=== PATIENT | female | born 1995 | race Caucasian/White ===

== ENCOUNTER 2020-12-28 17:41 | Emergency (ER) | payer BC ==
--- NOTE | 2020-12-28 18:30 | EDM.PDOC ---
ED HPI GENERAL MEDICAL PROBLEM - General Chief Complaint: Abdominal Pain Stated Complaint: PAIN ON RIGHT SIDE Time Seen by Provider: 12/28/20 18:04 Source of Information: Reports: Patient, RN Notes Reviewed History Limitations: Reports: No Limitations - History of Present Illness INITIAL COMMENTS - FREE TEXT/NARRATIVE: Patient is a 25-year-old female who presents to the ER for her right-sided abdominal pain. Patient notes that she has had pain that wraps around into her right flank, but has located itself into her right upper quadrant recently for the last 2 weeks or so. She notes this is kind of colicky and intermittent nothing seems to really make it better and nothing really makes it worse. She is not having any fevers or chills, cough/breath, nausea/vomiting/diarrhea. She has no history of kidney stones or urinary tract infections. She further denying any sort of dysuria, frequency or urgency. States that the pain is sharp and stabbing in nature, and she has not experienced this pain before. She has been using Tylenol and ibuprofen but has not used any this today it does not seem to make it better. Also notes that certain foods do not seem to make a difference. Does state that she has a history of gallbladder dysfunction in her family and she is becoming concerned that it could be her gallbladder. She has had an appendectomy. Primary care provider is Keli Rios. Patient denies any chance of , and she states that she is on the Depo shot and has not gotten her period in some time. - Related Data Allergies Allergy/AdvReac Type Severity Reaction Status Date / Time Sulfa (Sulfonamide Allergy Cannot Verified 12/28/20 18:04 Antibiotics) Remember Home Meds: Home Meds Albuterol [Ventolin HFA] 2 puff INH Q6HR PRN 06/11/18 [History] Multivitamin [Multi-Vitamin Daily] 1 tab PO DAILY 06/11/18 [History] Sertraline [Zoloft] 100 mg PO DAILY 06/11/18 [History] Topiramate 50 mg PO BID 06/11/18 [History] busPIRone [Buspar] 15 mg PO DAILY 06/11/18 [History] Hyoscyamine [Hyomax-SL] 0.125 mg SL Q4H PRN #20 tab.sl 12/28/20 [Rx] Past Medical History HEENT History: Reports: Impaired Vision Respiratory History: Reports: Asthma Gastrointestinal History: Reports: GERD [employer]ELOPER History: Reports: Other (See Below) Other [employer] DEVELOPER History: ovarian cyst Other Neuro History: pseudotumor cerebri Psychiatric History: Reports: Anxiety, Depression Endocrine/Metabolic History: Reports: Obesity/BMI 30+ Dermatologic History: Reports: Eczema - Infectious Disease History Infectious Disease History: Reports: Chicken Pox, Influenza - Past Surgical History GI Surgical History: Reports: Appendectomy Social & Family History - Tobacco Use Tobacco Use Status *Q: Never Tobacco User Second Hand Smoke Exposure: No - Caffeine Use Caffeine Use: Reports: Coffee - Recreational Drug Use Recreational Drug Use: No ED ROS GENERAL - Review of Systems Review Of Systems: Comprehensive ROS is negative, except as noted in HPI. ED EXAM, GI/ABD - Physical Exam Exam: See Below Exam Limited By: No Limitations General Appearance: Alert, WD/WN, No Apparent Distress Respiratory/Chest: No Respiratory Distress, Lungs Clear, Normal Breath Sounds, No Accessory Muscle Use, Chest Non-Tender Cardiovascular: Normal Peripheral Pulses, Regular Rate, Rhythm, No Edema GI/Abdominal Exam: Normal Bowel Sounds, Soft, No Distention, No Mass, Tender (through RUQ and epigastrium) Extremities: Normal Inspection, Normal Capillary Refill Neurological: Alert, Oriented, Normal Cognition, No Motor/Sensory Deficits Psychiatric: Normal Affect, Normal Mood Skin Exam: Warm, Dry, Intact, Normal Color, No Rash Course - Vital Signs Last Recorded V/S: Last Vital Signs Temp 97.1 F 12/28/20 17:57 Pulse 76 12/28/20 17:57 Resp 16 12/28/20 17:57 BP Pulse Ox 99 12/28/20 17:57 - Orders/Labs/Meds Orders: Active Orders 24 hr Category Date Time Status Abdomen Ltd [US] Stat Exams 12/28/20 18:26 Taken CULTURE URINE [MREF] Urgent Lab 12/28/20 18:10 Received Labs: Laboratory Tests 12/28/20 12/28/20 12/28/20 Range/Units 18:10 18:37 18:37 WBC 6.54 (3.98-10.04) K/mm3 RBC 4.48 (3.98-5.22) M/mm3 Hgb 13.1 (11.2-15.7) gm/dl Hct 39.0 (34.1-44.9) % MCV 87.1 (79.4-94.8) fl MCH 29.2 (25.6-32.2) pg MCHC 33.6 (32.2-35.5) g/dl RDW Std Deviation 42.8 (36.4-46.3) fL Plt Count 232 (182-369) K/mm3 MPV 10.8 (9.4-12.3) fl Neut % (Auto) 62.2 (34.0-71.1) % Lymph % (Auto) 28.0 (19.3-51.7) % Dukes % (Auto) 7.5 (4.7-12.5) % Eos % (Auto) 1.5 (0.7-5.8) Baso % (Auto) 0.8 (0.1-1.2) % Neut # (Auto) 4.07 (1.56-6.13) K/mm3 Lymph # (Auto) 1.83 (1.18-3.74) K/mm3 Dukes # (Auto) 0.49 H (0.24-0.36) K/mm3 Eos # (Auto) 0.10 (0.04-0.36) K/mm3 Baso # (Auto) 0.05 (0.01-0.08) K/mm3 Sodium 140 (136-145) mEq/L Potassium 3.8 (3.5-5.1) mEq/L Chloride 107 (98-107) mEq/L Carbon Dioxide 24 (21-32) mEq/L Anion Gap 12.8 (5-15) BUN 12 (7-18) mg/dL Creatinine 1.0 (0.55-1.02) mg/dL Est Cr Clr Drug Dosing 91.38 mL/min Estimated GFR (MDRD) > 60 (>60) mL/min BUN/Creatinine Ratio 12.0 L (14-18) Glucose 94 (70-99) mg/dL Calcium 8.6 (8.5-10.1) mg/dL Total Bilirubin 0.5 (0.2-1.0) mg/dL GGT 18 (5-55) U/L AST 16 (15-37) U/L ALT 25 (14-59) U/L Alkaline Phosphatase 88 (46-116) U/L C-Reactive Protein 1.3 H* (<1.0) mg/dL Total Protein 7.3 (6.4-8.2) g/dl Albumin 3.7 (3.4-5.0) g/dl Globulin 3.6 gm/dL Albumin/Globulin Ratio 1.0 (1-2) Lipase 126 (73-393) U/L Urine Color Yellow (Yellow) Urine Appearance Cloudy H (Clear) Urine pH 7.5 (5.0-8.0) Ur Specific [place] 1.020 (1.005-1.030) Urine Protein Negative (Negative) Urine Glucose (UA) Negative (Negative) Urine Ketones Negative (Negative) Urine Occult Blood Negative (Negative) Urine Nitrite Negative (Negative) Urine Bilirubin Negative (Negative) Urine Urobilinogen 0.2 (0.2-1.0) Ur Leukocyte Esterase Trace H (Negative) Urine RBC 0-5 (0-5) /hpf Urine WBC 0-5 (0-5) /hpf Ur Squamous Epith Cells 5-10 H (0-5) /hpf Amorphous Sediment Many H (NOT SEEN) /hpf Urine Bacteria Few (FEW) /hpf Urine Mucus Few (FEW) /hpf - Re-Assessments/Exams Free Text/Narrative Re-Assessment/Exam: 12/28/20 18:29 Patient presents to the ER for her right-sided abdominal pain, for today's purposes we will get a gallbladder ultrasound, and get some baseline labs for evaluation. 12/28/20 20:47 Patient's laboratory evaluation demonstrates CBC within normal limits, CMP is essentially unremarkable, CRP mildly elevated 1.3, urinalysis was cloudy with trace leukocyte Estrace 0-5 white blood cells and 5-10 squamous epithelial cells this will be sent for culture for further evaluation. She has not had any worrisome signs and symptoms for this to be the start of UTI so we will call her if she needs any sort of antibiotics for this. Ultrasound did demonstrate some gallbladder wall thickening, but no stones, or no common bile duct dilatation we will have her monitor her symptoms over the weekend and present to the ER if her symptoms seem to worsen like fevers or chills, worsening right upper quadrant pain, we will trial some Levsin for pain management, and start on a PPI if she has not already taken 1. Dr. Barclay did request that a HIDA scan order be written for and she will follow up with the patient next week. Departure - Departure Time of Disposition: 20:51 Disposition: Home, Self-Care 01 Condition: Good Clinical Impression: Thickening of wall of gallbladder, Colicky RUQ abdominal pain - Discharge Information *PRESCRIPTION DRUG MONITORING PROGRAM REVIEWED*: No *COPY OF PRESCRIPTION DRUG MONITORING REPORT IN PATIENT ERON: No Prescriptions: Hyoscyamine [Hyomax-SL] 0.125 mg SL Q4H PRN #20 tab.sl PRN Reason: Pain Instructions: Gallbladder Eating Plan Referrals: Keli Rios PA-C [Primary Care Provider] - Nicky Fernandez MD [Physician] - 1 Week Forms: ED Department Discharge Additional Instructions: You were seen in this ER for your right-sided/right upper quadrant abdominal pain. Work-up today included a gallbladder ultrasound, and some labs. Your labs showed no focal signs of any bacterial infection, urinalysis was slightly suggestive of possible contamination and has been sent for culture, to make sure that it was either contamination or infection you will be made notified in about 24 to 48 hours if you should need antibiotics for this. Ultrasound of your gallbladder did show some gallbladder wall thickening but no stones or common bile duct dilatation. Your case was discussed with Dr. Barclay our general surgeon on-call, and she will follow up with you in her clinic, sometime next week. A outpatient order for a HIDA scan has been placed on your behalf for further evaluation of gallbladder function. Our radiology department will call you to schedule this appointment. In the meantime you will be trialed with a medication called Levsin you will be 1 tablet dissolvable under your tongue as needed if you are having gallbladder pain. You may take this medication every 4 hours as needed. This medication was electronically sent to the [facility] pharmacy located on [place]. You have been given an educational handout on a gallbladder eating plan, please try to stick to a low-fat diet, and if you are not already doing so, please take a PPI like omeprazole to see if this helps relieve some of your symptoms. Please do not hesitate to return to the ER at any time if your symptoms change or worsen. Sepsis Event Note (ED) - Evaluation Sepsis Screening Result: No Definite Risk - Focused Exam Vital Signs: Vital Signs Temp Pulse Resp Pulse Ox 12/28/20 17:57 97.1 F 76 16 99 - My Orders Last 24 Hours: My Active Orders 12/28/20 18:10 CULTURE URINE [MREF] Urgent 12/28/20 18:26 Abdomen Ltd [US] Stat - Assessment/Plan Last 24 Hours: My Active Orders 12/28/20 18:10 CULTURE URINE [MREF] Urgent 12/28/20 18:26 Abdomen Ltd [US] Stat
--- NOTE | 2020-12-30 10:49 | US ---
Limited abdominal ultrasound: Multiple real-time images were obtained of the upper right abdomen. Comparison: No prevous abdominal imaging is available. Liver shows no focal abnormality. Gallbladder contains no shadowing gallstones. No gallbladder wall thickening or biliary duct dilatation is seen. Right kidney shows no hydronephrosis or mass. Right kidney has a length of 11.6 cm. The tail of the pancreas is obscured by bowel gas. Other portions of the pancreas are felt to be within normal limits. Inferior vena cava is patent. Main portal vein shows normal hepatopedal flow. Proximal aorta shows no aneurysm. Impression: 1. Nothing acute is identified on right upper quadrant abdominal ultrasound. Diagnostic code #1 I mostly agree with preliminary report from [facility], finalized on 12/28/20, 9:19 PM CDT, code 2
== END 2020-12-28 21:15 | disposition home or self-care (01) ==
LOC: JD.ED 17:41
DX: K82.8 Other specified diseases of gallbladder (principal); R79.82 Elevated C-reactive protein (CRP); J45.909 Unspecified asthma, uncomplicated; E66.9 Obesity, unspecified; Z68.42 Body mass index [BMI] 45.0-49.9, adult; Z90.49 Acquired absence of other specified parts of digestive tract; Z88.2 Allergy status to sulfonamides; Z79.899 Other long term (current) drug therapy
CPT/HCPCS: 36415; 76705; 76705-26; 80053; 81001; 82977; 83690; 85025; 86140; 87086; 99284; 99284-25

== ENCOUNTER 2021-01-09 08:57 | Day surgery (SDC) | payer BC ==
[~2021-01-09 08:57] MED LIST: Lactated Ringers 1,000 ML IV SCH; Lidocaine 1%/Sod Bicarbonate in NS 8.4% 1 ML Syringe IDERM PRN; Sodium Chloride 0.9% 10 ML Syringe FLUSH PRN; ceFAZolin 1 GM Vial ONE; fentaNYL 100 MCG/2 ML SDV ONE
[2021-01-09] MEDS ORDERED: Lidocaine 1% 4 ML ONE (09:03)
[2021-01-09] MEDS ORDERED: Rocuronium 50 MG/5 ML Vial ONE ×2 (09:03→12:16)
[2021-01-09] MEDS ORDERED: Lactated Ringers 1,000 ML ONE ×2 (09:03→11:09)
[2021-01-09] MEDS ORDERED: Ondansetron 4 MG/2 ML SDV ONE (09:03)
[2021-01-09] MEDS ORDERED: Propofol 200 MG/20 ML SDV ONE ×2 (09:03→11:09)
[2021-01-09] MEDS ORDERED: Dexamethasone 4 MG/ML 5 ML MDV ONE (09:03)
[2021-01-09] MEDS ORDERED: Midazolam 1 MG/ML 2 ML SDV ONE (09:04)
[2021-01-09] MEDS ORDERED: fentaNYL 100 MCG/2 ML SDV ONE (09:04)
[2021-01-09] MEDS ORDERED: Albuterol 0.083% 2.5 MG/3 ML Neb Soln NEB PRN ×2 (09:35→11:49)
--- NOTE | 2021-01-09 09:38 | PCM.PREANE ---
<Jennifer Yanes - Last Filed: 01/09/21 09:35> Preanesthetic Assessment - Procedure Proposed Procedure: Laparoscopic Cholecystectomy - Anesthesia/Transfusion/Family Hx Anesthesia History: Prior Anesthesia Without Reaction Family History of Anesthesia Reaction: No Transfusion History: No Prior Transfusion(s) Intubation History: Unknown - Review of Systems Pulmonary: No Symptoms (asthma) Gastrointestinal: No Symptoms (GERD) Neurological: Headache Other: Reports: Sinus Problem (seasonal alleries), Depression, Anxiety - Physical Assessment NPO Status Date: 01/08/21 Vital Signs: HR: Sat: Temp: B/P: Resp: Height: 1.78 m ASA Class: 3 Mental Status: Alert & Oriented x3 - Lab Values: All labs reviewed and noted and within acceptable ranges to proceed with scheduled procedure. - Allergies Allergies/Adverse Reactions: Allergies Allergy/AdvReac Type Severity Reaction Status Date / Time Sulfa (Sulfonamide Allergy Cannot Verified 01/09/21 10:14 Antibiotics) Remember - Anesthesia Plan Pre-Op Medication Ordered: None - Acknowledgements Anesthesia Type Planned: General Anesthesia Pt an Appropriate Candidate for the Planned Anesthesia: Yes Alternatives and Risks of Anesthesia Discussed w Pt/Guardian: Yes Pt/Guardian Understands and Agrees with Anesthesia Plan: Yes PreAnesthesia Questionnaire HEENT History: Reports: Impaired Vision Cardiovascular History: Reports: None Respiratory History: Reports: Asthma Gastrointestinal History: Reports: GERD Genitourinary History: Reports: None [employer]OR [employer] GENERATION History: Reports: Other (See Below) Other OB/BYN History: ovarian cyst, pelvic pain Musculoskeletal History: Reports: None Neurological History: Reports: Headaches, Chronic, Migraines Other Neuro History: pseudotumor cerebri Psychiatric History: Reports: Anxiety, Depression Endocrine/Metabolic History: Reports: Obesity/BMI 30+ Immunologic History: Reports: None Oncologic (Cancer) History: Reports: None Dermatologic History: Reports: Eczema - Infectious Disease History Infectious Disease History: Reports: Chicken Pox, Influenza - Past Surgical History Head Surgeries/Procedures: Reports: None HEENT Surgical History: Reports: None Cardiovascular Surgical History: Reports: None Respiratory Surgical History: Reports: None GI Surgical History: Reports: Appendectomy Female Surgical History: Reports: None Male Surgical History: Reports: None Endocrine Surgical History: Reports: None Neurological Surgical History: Reports: Other (See Below) Other Neurological Surgeries/Procedures: 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 Musculoskeletal Surgical History: Reports: None Oncologic Surgical History: Reports: None Dermatological Surgical History: Reports: None - SUBSTANCE USE Tobacco Use Status *Q: Never Tobacco User Recreational Drug Use History: No - HOME MEDS Home Medications: Home Meds Albuterol [Ventolin HFA] 2 puff INH Q6HR PRN 06/11/18 [History] Multivitamin [Multi-Vitamin Daily] 1 tab PO DAILY 06/11/18 [History] Sertraline [Zoloft] 100 mg PO DAILY 06/11/18 [History] Topiramate 50 mg PO BID 06/11/18 [History] busPIRone [Buspar] 15 mg PO DAILY 06/11/18 [History] SUMAtriptan succinate [Imitrex] 100 mg PO ASDIRECTED PRN 01/08/21 [History] medroxyPROGESTERone [Depo-Provera] 1 dose IM Q90D 01/08/21 [History] <Lisa Farrell - Last Filed: 01/09/21 10:41> Preanesthetic Assessment - Anesthesia/Transfusion/Family Hx Anesthesia History: Prior Anesthesia Without Reaction (Motion Sickness, has had Scopalamine patch in the past and would like one today.) Family History of Anesthesia Reaction: No Transfusion History: No Prior Transfusion(s) Intubation History: Unknown (History of Glidescope Intubation, Laryngoscopy was not attempted. ) - Review of Systems General: No Symptoms Pulmonary: No Symptoms (asthma, allergen induced (pollen). Controlled, rare inhaler use. ) Cardiovascular: No Symptoms Gastrointestinal: No Symptoms, Abdominal Pain Neurological: Headache (Pseudotumor Cerebri, monitored. Treatment working well, occasional headache/migraine. ) Other: Reports: None (Obesity with BMI of 45.1), Sinus Problem, Depression, Anxiety - Physical Assessment NPO Status Time: 23:00 Vital Signs: 74 96% 98.3F 123/70 16 ASA Class: 3 Mental Status: Alert & Oriented x3 Airway Class: Mallampati = 2 Dentition: Reports: Normal Dentition Thyro-Mental Finger Breadths: 3 Mouth Opening Finger Breadths: 3 ROM/Head Extension: Full Lungs: Clear to Auscultation, Normal Respiratory Effort, Decreased Breath Sounds Cardiovascular: Regular Rate, Regular Rhythm - Lab Values: Laboratory Last Values Urine HCG, Qual Negative (NEGATIVE) 01/09/21 08:59 - Anesthesia Plan Pre-Op Medication Ordered: Other (Albuterol Nebulizer/Scopalamine Patch) - Acknowledgements Anesthesia Type Planned: General Anesthesia Pt an Appropriate Candidate for the Planned Anesthesia: Yes Alternatives and Risks of Anesthesia Discussed w Pt/Guardian: Yes Pt/Guardian Understands and Agrees with Anesthesia Plan: Yes PreAnesthesia Questionnaire - CURRENT (IN HOUSE) MEDS Current Meds: Current Medications Albuterol (Albuterol 0.083% 2.5 Mg/3 Ml Neb Soln) 2.5 mg NEB ONETIME PRN PRN Reason: asthma/preoperative Stop: 01/09/21 12:00 Lactated Ringer's (Ringers, Lactated) 1,000 mls @ 125 mls/hr IV ASDIRECTED KULDIP Stop: 01/09/21 23:00 Last Admin: 01/09/21 09:15 Dose: 125 mls/hr Documented by: Lidocaine/Sodium Bicarbonate (Lidocaine 1%/Sod Bicarbonate In Ns 8.4% 1 Ml Syringe) 0.25 ml IDERM ONETIME PRN PRN Reason: Prior to IV Start Stop: 01/09/21 18:00 Last Admin: 01/09/21 09:15 Dose: 0.25 ml Documented by: Scopolamine (Scopolamine 1.5 Mg Transdermal Patch) 1.5 mg TRDERM Q72H PRN PRN Reason: Nausea Sodium Chloride (Sodium Chloride 0.9% 10 Ml Syringe) 10 ml FLUSH ASDIRECTED PRN PRN Reason: Keep Vein Open Stop: 01/09/21 18:00 Discontinued Medications Acetaminophen (Acetaminophen 325 Mg Tab) 975 mg PO NOW ONE Stop: 01/09/21 10:31 Last Admin: 01/09/21 10:11 Dose: 975 mg Documented by: Cefazolin Sodium (Cefazolin 1 Gm Vial) Confirm Administered Dose 2 gm .ROUTE .STK-MED ONE Stop: 01/09/21 08:22 Cefazolin Sodium (Cefazolin 1 Gm Vial) Confirm Administered Dose 1 gm .ROUTE .STK-MED ONE Stop: 01/09/21 09:55 Dexamethasone (Dexamethasone 4 Mg/Ml 5 Ml Mdv) Confirm Administered Dose 20 mg .ROUTE .STK-MED ONE Stop: 01/09/21 09:04 Fentanyl (Fentanyl 100 Mcg/2 Ml Sdv) Confirm Administered Dose 100 mcg .ROUTE .STK-MED ONE Stop: 01/09/21 08:56 Fentanyl (Fentanyl 100 Mcg/2 Ml Sdv) Confirm Administered Dose 100 mcg .ROUTE .S TK-MED ONE Stop: 01/09/21 09:05 Gabapentin (Gabapentin 300 Mg Cap) 300 mg PO ONETIME ONE Stop: 01/09/21 10:31 Last Admin: 01/09/21 10:11 Dose: 300 mg Documented by: Hydromorphone HCl (Hydromorphone 0.5 Mg/0.5 Ml Syringe) Confirm Administered Dose 0.5 mg .ROUTE .STK-MED ONE Stop: 01/09/21 09:40 Lidocaine HCl (Xylocaine-Mpf 1%) Confirm Administered Dose 4 mls @ as directed .ROUTE .STK-MED ONE Stop: 01/09/21 09:04 Lactated Ringer's (Ringers, Lactated) Confirm Administered Dose 1,000 mls @ as directed .ROUTE .STK-MED ONE Stop: 01/09/21 09:04 Ketorolac Tromethamine (Ketorolac 30 Mg/Ml Sdv) Confirm Administered Dose 30 mg .ROUTE .STK-MED ONE Stop: 01/09/21 09:40 Midazolam HCl (Midazolam 1 Mg/Ml 2 Ml Sdv) Confirm Administered Dose 2 mg .ROUTE .STK-MED ONE Stop: 01/09/21 09:05 Ondansetron HCl (Ondansetron 4 Mg/2 Ml Sdv) Confirm Administered Dose 4 mg .ROUTE .STK-MED ONE Stop: 01/09/21 09:04 Propofol (Propofol 200 Mg/20 Ml Sdv) Confirm Administered Dose 200 mg .ROUTE .STK-MED ONE Stop: 01/09/21 09:04 Rocuronium [place] (Rocuronium 50 Mg/5 Ml Vial) Confirm Administered Dose 50 mg .ROUTE .STK-MED ONE Stop: 01/09/21 09:04
[2021-01-09] MEDS ORDERED: HYDROmorphone 0.5 MG/0.5 ML Syringe ONE ×3 (09:39→13:00)
[2021-01-09] MEDS ORDERED: Ketorolac 30 MG/ML SDV ONE (09:39)
[2021-01-09] MEDS ORDERED: ceFAZolin 1 GM Vial ONE (09:54)
[2021-01-09] MEDS ORDERED: Acetaminophen 325 MG Tab PO ONE (10:30)
[2021-01-09] MEDS ORDERED: Gabapentin 300 MG Cap PO ONE (10:30)
[2021-01-09] MEDS ORDERED: Lidocaine 1% with EPINEPHrine 1:100,000 10 ML MDV ONE (10:33)
[2021-01-09] MEDS ORDERED: Bupivacaine 0.5%/EPINEPHrine 1:200,000 50 ML MDV ONE (10:34)
[2021-01-09] MEDS ORDERED: Scopolamine 1.5 MG Transdermal Patch TRDERM PRN (10:35)
[2021-01-09] MEDS ORDERED: Succinylcholine/Sod PF 100 MG/5 ML SYRINGE IV ONE (11:09)
[2021-01-09] MEDS ORDERED: diphenhydrAMINE 50 MG/ML SDV ONE (11:33)
[2021-01-09] MEDS ORDERED: fentaNYL 100 MCG/2 ML SDV IVPUSH PRN (11:49)
[2021-01-09] MEDS ORDERED: Ondansetron 4 MG/2 ML SDV IVPUSH PRN (11:49)
[2021-01-09] MEDS ORDERED: ePHEDrine 50 MG/ML SDV IVPUSH PRN (11:49)
[2021-01-09] MEDS ORDERED: HYDROmorphone 0.5 MG/0.5 ML Syringe IVPUSH PRN (11:49)
[2021-01-09] MEDS ORDERED: Glycopyrrolate 0.2 MG/ML SDV ONE ×2 (12:39→12:45)
[2021-01-09] MEDS ORDERED: Labetalol 100 MG/20 ML MDV ONE (13:00)
--- NOTE | 2021-01-09 13:08 | PCM.OPNOTE ---
- General Post-Op/Procedure Note Date of Surgery/Procedure: 01/09/21 Operative Procedure(s): laparoscopic cholecystectomy Findings: normal gallbladder anatomy Pre Op Diagnosis: biliary dyskinesia Post-Op Diagnosis: same Anesthesia Technique: General ET Tube, Local Primary Surgeon: Nicky Fernandez Anesthesia Provider: Jennifer Yanes Pathology: gallbladder with contents Fluid Replacement, Intraop: 1,200 Output, Urine Amount: 0 EBL in mLs: 100 Complications: none apparent Condition: Good
--- NOTE | 2021-01-09 13:19 | PCM.PRNOTE ---
- Free Text/Narrative Note: OPERATIVE REPORT Date of Surgery/Procedure: January 09, 2021 Operative Procedure(s): laparoscopic cholecystectomy Findings:normal gallbladder anatomy Pre Op Diagnosis: Biliary dyskinesia Post-Op Diagnosis: Same Anesthesia Technique: General ET Tube Primary Surgeon: Nicky Fernandez MD Anesthesia Provider: Jennifer Yanes CRNA Pathology: Gallbladder with contents Fluid Replacement, Intraop: 1200cc Output, Urine Amount: 0cc EBL: 100cc Drain/Tube Comments: none Indication for the procedure: The patient is a 25-year-old lady who presented to my office with findings of biliary dyskinesia. The patient was counseled for laparoscopic cholecystectomy, with possible conversion to open. After discussion of the risks of infection, bleeding and injury to the bile duct as well as increased complication from previous intra-abdominal surgery, the patient's consent was obtained. Description of the procedure: The patient presented to the outpatient holding area on the day of the procedure. The history and physical were verified and consent was present and on the chart. The patient was taken back to the operating room and placed in supine position on the operating table. SCD boots were placed and functional prior to the start of the procedure. Preoperative antibiotics were administered according to SCIP protocol, Ancef 3 g IV. A surgical timeout was performed. The patient then had induction of general anesthesia and was intubated without difficulty. The patient was prepped and draped in standard surgical fashion. We began by making an infraumbilical vertical incision and deepened this down through subcutaneous fat. The abdominal wall was very deep, so a 5mm port was inserted into the abdomen through the umbilical area. We inserted a scope into the abdomen and inspected the area where we had entered. There was no evidence of injury to surrounding structures with no evidence of bile or bleeding. A TAP block was then performed using 1% lidocaine with epinephrine mixed with 0.5% bupivacaine with epinephrine. An additional 5mm port was placed in the epigastric area under direct visualization. We then looked back to the umbilical port. The 5mm port was removed. Attempt was made to bluntly insert the 12mm Sun port through the opening, however, this was not initially successful. The area was then visualized and the fascia was cut. Significant bleeding occurred in this area. The Sun Port was inserted and the balloon insufflated to tamponade the area. The patient was then positioned with head up and right side up to facilitate exposure of the gallbladder. We then proceeded with placing our additional ports. A 5mm port was placed in the epigastric region. Two additional 5mm ports placed under direct visualization in the right upper quadrant. Once we had sufficiently exposed the dome of the gallbladder. This was grasped and retracted cephalad. We proceeded with our dissection to expose the cystic duct and cystic artery. We did have a critical view. The cystic duct and artery were then clipped and cut using endoscopic scissors. We then proceeded to fully dissect the gallbladder off of the cystic plate using the Bovie device. The gallbladder was then placed in the Endo Catch bag and withdrawn towards the umbilical port. We then inspected the area of the dissection. There was no significant bleeding and hemostasis was achieved. We then inspected the port sites and desufflated the abdomen. Again there was significant bleeding in the umbilical port site. The gallbladder was withdrawn through the umbilical port site. The skin incision was widened for better exposure, and bleeding was noted from the rectus muscles. This was controlled with the Bovie. The fascia was closed with an 0 Vicryl suture. The umbilical tissues were closed with a deep layer of 3-0 Vicryl suture. The ports were then removed. A superficial 4-0 monocryl suture was used to approximate the skin. The skin was covered with Dermabond surgical glue. The patient tolerated the procedure well and was extubated without difficulty. She was transported to the PACU in stable condition. All sponge, needle counts correct. I was scrubbed and actively participated in the entire procedure. No immediate complications noted. Complications: None apparent Condition: Good Nicky Fernandez MD General Surgery
--- NOTE | 2021-01-09 13:29 | PCM.POSTAN ---
POST ANESTHESIA ASSESSMENT - MENTAL STATUS Mental Status: Alert - VITAL SIGNS Vital Signs: Last Vital Signs Temp 36.6 C 01/09/21 13:13 Pulse 74 01/09/21 13:13 Resp 16 01/09/21 13:13 BP 138/64 01/09/21 13:13 Pulse Ox 96 01/09/21 13:13 - RESPIRATORY Respiratory Status: Respiratory Rate WNL, Airway Patent, O2 Saturation Stable, Supplemental Oxygen - CARDIOVASCULAR CV Status: Pulse Rate WNL, Blood Pressure Stable - GASTROINTESTINAL GI Status: No Symptoms - POST OP HYDRATION Hydration Status: Adequate & Stable
--- NOTE | 2021-01-09 14:03 | PCM48HPAN ---
Post Anesthesia Note - EVALUATION WITHIN 48HRS OF ANESTHETIC Vital Signs in Normal Range: Yes Patient Participated in Evaluation: Yes Respiratory Function Stable: Yes Airway Patent: Yes Cardiovascular Function Stable: Yes Hydration Status Stable: Yes Pain Control Satisfactory: Yes Nausea and Vomiting Control Satisfactory: Yes Mental Status Recovered: Yes Vital Signs: Last Vital Signs Temp 36.6 C 01/09/21 13:13 Pulse 74 01/09/21 09:10 Resp 13 01/09/21 14:00 BP 122/65 01/09/21 14:00 Pulse Ox 92 L 01/09/21 14:00
== END 2021-01-09 15:39 | disposition home or self-care (01) ==
LOC: JD.SDS 08:57
PROVIDERS: ATTEND Surgery
DX: K80.10 Calculus of gallbladder with chronic cholecystitis without obstruction (principal); K82.8 Other specified diseases of gallbladder; E66.9 Obesity, unspecified; Z90.49 Acquired absence of other specified parts of digestive tract; Z98.890 Other specified postprocedural states; Z88.2 Allergy status to sulfonamides; Z79.899 Other long term (current) drug therapy; Z68.42 Body mass index [BMI] 45.0-49.9, adult
CPT/HCPCS: 47562; 81025; 94640; A9270; J0330; J0690; J1100; J1170; J1200; J1885; J2250; J2405; J2704; J2710; J3010; J3490; J7120; 00790

== ENCOUNTER 2021-02-13 09:47 | Day surgery (SDC) | payer BC ==
[~2021-02-13 09:47] MED LIST changes: -ceFAZolin 1 GM Vial ONE; -fentaNYL 100 MCG/2 ML SDV ONE
[2021-02-13] MEDS ORDERED: Lidocaine 1% 0 ML ONE (12:16)
[2021-02-13] MEDS ORDERED: Propofol 200 MG/20 ML SDV ONE ×2 (12:17→13:11)
[2021-02-13] MEDS ORDERED: Lidocaine 1% 4 ML ONE ×2 (12:17)
--- NOTE | 2021-02-13 13:08 | PCM.PREANE ---
Preanesthetic Assessment - Procedure Proposed Procedure: egd - Anesthesia/Transfusion/Family Hx Anesthesia History: Prior Anesthesia Without Reaction (Motion Sickness, has had Scopalamine patch in the past and would like one today.) Family History of Anesthesia Reaction: No Transfusion History: No Prior Transfusion(s) Intubation History: Unknown (History of Glidescope Intubation, Laryngoscopy was not attempted. ) - Review of Systems General: No Symptoms Pulmonary: No Symptoms, Other (history of asthma hasn't used inhaler for over a year ) Cardiovascular: No Symptoms Gastrointestinal: No Symptoms Neurological: No Symptoms, Headache (on migraine medication ) Other: Reports: Anxiety - Physical Assessment NPO Status Date: 02/12/21 NPO Status Time: 23:30 Vital Signs: Last Vital Signs Temp 36.4 C 02/13/21 10:00 Pulse 63 02/13/21 10:00 Resp 18 02/13/21 10:00 BP 134/76 02/13/21 10:00 Pulse Ox 95 02/13/21 10:00 Height: 1.78 m Weight: 143.335 kg ASA Class: 3 Mental Status: Alert & Oriented x3 Airway Class: Mallampati = 3 (nk) Dentition: Reports: Normal Dentition Thyro-Mental Finger Breadths: 3 Mouth Opening Finger Breadths: 3 ROM/Head Extension: Full Lungs: Clear to Auscultation, Normal Respiratory Effort Cardiovascular: Regular Rate, Regular Rhythm - Lab Values: Laboratory Last Values Urine HCG, Qual Negative (NEGATIVE) 02/13/21 10:58 - Allergies Allergies/Adverse Reactions: Allergies Allergy/AdvReac Type Severity Reaction Status Date / Time Sulfa (Sulfonamide Allergy Cannot Verified 02/13/21 12:03 Antibiotics) Remember - Blood Blood Available: No - Anesthesia Plan Pre-Op Medication Ordered: Other (bernard neb) - Acknowledgements Anesthesia Type Planned: MAC Pt an Appropriate Candidate for the Planned Anesthesia: Yes Alternatives and Risks of Anesthesia Discussed w Pt/Guardian: Yes Pt/Guardian Understands and Agrees with Anesthesia Plan: Yes PreAnesthesia Questionnaire HEENT History: Reports: Impaired Vision Cardiovascular History: Reports: None Respiratory History: Reports: Asthma Gastrointestinal History: Reports: GERD Genitourinary History: Reports: None 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 (See Below) Other OB/BYN History: ovarian cyst Musculoskeletal History: Reports: None Neurological History: Reports: Headaches, Chronic, Migraines Other Neuro History: pseudotumor cerebri Psychiatric History: Reports: Anxiety, Depression Endocrine/Metabolic History: Reports: Obesity/BMI 30+ Immunologic History: Reports: None Oncologic (Cancer) History: Reports: None Dermatologic History: Reports: Eczema - Infectious Disease History Infectious Disease History: Reports: Chicken Pox, Influenza - Past Surgical History Head Surgeries/Procedures: Reports: None HEENT Surgical History: Reports: None Cardiovascular Surgical History: Reports: None Respiratory Surgical History: Reports: None GI Surgical History: Reports: Appendectomy, Cholecystectomy Female Surgical History: Reports: None Male Surgical History: Reports: None Endocrine Surgical History: Reports: None Neurological Surgical History: Reports: Other (See Below) Other Neurological Surgeries/Procedures: 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 Musculoskeletal Surgical History: Reports: None Oncologic Surgical History: Reports: None Dermatological Surgical History: Reports: None - SUBSTANCE USE Tobacco Use Status *Q: Never Tobacco User Tobacco Use Within Last Twelve Months: No Recreational Drug Use History: No - HOME MEDS Home Medications: Home Meds Albuterol [Ventolin HFA] 2 puff INH Q6HR PRN 06/11/18 [History] Multivitamin [Multi-Vitamin Daily] 1 tab PO DAILY 06/11/18 [History] Sertraline [Zoloft] 100 mg PO DAILY 06/11/18 [History] Topiramate 50 mg PO BID 06/11/18 [History] busPIRone [Buspar] 15 mg PO DAILY 06/11/18 [History] SUMAtriptan succinate [Imitrex] 100 mg PO ASDIRECTED PRN 01/08/21 [History] Omeprazole Magnesium [Prilosec Otc] 20 mg PO DAILY 02/12/21 [History] - CURRENT (IN HOUSE) MEDS Current Meds: Current Medications Albuterol/Ipratropium (Albuterol/Ipratropium 3.0-0.5 Mg/3 Ml Neb Soln) 3 ml NEB ONETIME ONE Stop: 02/13/21 13:31 Last Admin: 02/13/21 12:57 Dose: 3 ml Documented by: Lactated Ringer's (Ringers, Lactated) 1,000 mls @ 125 mls/hr IV ASDIRECTED KULDIP Stop: 02/13/21 23:00 Last Admin: 02/13/21 12:03 Dose: 125 mls/hr Documented by: Lidocaine/Sodium Bicarbonate (Lidocaine 1%/Sod Bicarbonate In Ns 8.4% 1 Ml Syringe) 0.25 ml IDERM ONETIME PRN PRN Reason: Prior to IV Start Stop: 02/13/21 18:00 Sodium Chloride (Sodium Chloride 0.9% 10 Ml Syringe) 10 ml FLUSH ASDIRECTED PRN PRN Reason: Keep Vein Open Stop: 02/13/21 18:00 Discontinued Medications Lidocaine HCl (Xylocaine-Mpf 1%) Confirm Administered Dose 2 mls @ as directed .ROUTE .STK-MED ONE Stop: 02/13/21 12:17 Lidocaine HCl (Xylocaine-Mpf 1%) Confirm Administered Dose 4 mls @ as directed .ROUTE .STK-MED ONE Stop: 02/13/21 12:18 Lidocaine HCl (Xylocaine-Mpf 1%) Confirm Administered Dose 4 mls @ as directed .ROUTE .STK-MED ONE Stop: 02/13/21 12:18 Propofol (Propofol 200 Mg/20 Ml Sdv) Confirm Administered Dose 200 mg .ROUTE .STK-MED ONE Stop: 02/13/21 12:18
[2021-02-13] MEDS ORDERED: Albuterol/Ipratropium 3.0-0.5 MG/3 ML Neb Soln NEB ONE (13:30)
--- NOTE | 2021-02-13 13:41 | PCM48HPAN ---
Post Anesthesia Note - EVALUATION WITHIN 48HRS OF ANESTHETIC Vital Signs in Normal Range: Yes Patient Participated in Evaluation: Yes Respiratory Function Stable: Yes Airway Patent: Yes Cardiovascular Function Stable: Yes Hydration Status Stable: Yes Pain Control Satisfactory: Yes Nausea and Vomiting Control Satisfactory: Yes Mental Status Recovered: Yes Vital Signs: Last Vital Signs Temp 36.4 C 02/13/21 10:00 Pulse 63 02/13/21 10:00 Resp 18 02/13/21 10:00 BP 134/76 02/13/21 10:00 Pulse Ox 95 02/13/21 10:00
--- NOTE | 2021-02-13 13:43 | PCM.OPNOTE ---
- General Post-Op/Procedure Note Date of Surgery/Procedure: 02/13/21 Operative Procedure(s): EGD Findings: 1. Hiatal hernia 2. Irregular z-line 3. Gastritis 4. Bile reflux 5. gastric diverticulum Pre Op Diagnosis: reflux, heartburn Post-Op Diagnosis: same Anesthesia Technique: MAC Primary Surgeon: Nicky Fernandez Anesthesia Provider: Irina Eubanks Pathology: 1. Z-line biopsies 2. Antrum biopsies Fluid Replacement, Intraop: 300 Output, Urine Amount: 0 EBL in mLs: 0 Complications: None apparent Condition: Good
--- NOTE | 2021-02-13 13:49 | PCM.PRNOTE ---
- Free Text/Narrative Note: Operative Report Date of procedure: January Preoperative diagnosis: Reflux, heartburn Postoperative diagnosis: same Surgeon: Nicky Fernandez M.D. Procedure: EGD Anesthesia: MAC Burglar Alarm Assembler: Irina Eubanks CRNA IV fluids: 300mL Estimated blood loss: 0mL Findings: 1. Hiatal hernia 2. Irregular z-line 3. Gastritis 4. Bile reflux 5. gastric diverticulum Specimens: 1. Z-line biopsies 2. Antrum biopsies Indication: The patient is a 25-year-old lady who presented with reflux and heartburn. The patient was consented for an EGD. Risk of bleeding and perforation were discussed. The patient's consent was obtained Description of the procedure: The patient was taken to the endoscopy suite and placed on hemodynamic monitoring. The nurse art psychotherapist induced MAC anesthesia. A bite block was placed. The patient was positioned in the left lateral decubitus position. A timeout was performed. The endoscope was gently placed into the mouth to the back of the pharynx and introduced into the esophagus. The scope was gently advanced under direct visualization down to the level of the lower esophageal sphincter. The stomach was then entered. Normal rugal folds were noted. Bilious fluid was present in the body of the stomach consistent with bile reflux. The scope was advanced into the antrum. We noted erythema consistent with gastritis, this was biopsied with a cold biopsy forceps for histology and H. pylori testing. A diverticulum was noted in the gastric antrum. The pylorus was then entered and the first and second portion of the duodenum was inspected. There were no ulcerations in the duodenum. The scope was then retroflexed in the cardia and fundus were investigated. No other abnormalities were noted. The scope was then withdrawn into the esophagus. A sliding hiatal hernia was noted with an irregular Z- line. This was biopsied in four quadrants with a cold biopsy forceps. The scope was withdrawn further and there was no esophagitis. The procedure was terminated. the patient tolerated the procedure well without any evidence of complications. Nicky Fernandez MD General Surgery
== END 2021-02-13 14:37 | disposition home or self-care (01) ==
LOC: JD.SDS 09:47
PROVIDERS: ATTEND Surgery
DX: K20.90 Esophagitis, unspecified without bleeding (principal); K44.9 Diaphragmatic hernia without obstruction or gangrene; K29.70 Gastritis, unspecified, without bleeding; K22.8 Other specified diseases of esophagus; K31.4 Gastric diverticulum
CPT/HCPCS: 43239; 81025; 94640; J2704; J7120; 00731; J7620-GY